=== PATIENT | male | born 1990 | race Caucasian/White ===

== ENCOUNTER 2020-05-12 02:14 | Emergency (ER) | payer BC ==
[2020-05-12 02:22] VITALS: BP 155/62; PULSE 101; RESP 22; TEMP 101.1
[2020-05-12] MEDS ORDERED: ACETAMINOPHEN TAB 500 MG TAB PO STA (02:30)
--- NOTE | 2020-05-12 02:32 | ED ---
URI HPI - General Chief Complaint: Upper Respiratory Infection Stated Complaint: Cough, body aches Time Seen by Provider: 05/12/20 02:23 Source: patient, family Mode of arrival: ambulatory Limitations: no limitations - History of Present Illness Initial Comments: 29-year-old male patient presents to the emergency department today for evaluation of cough, body aches, and chills for the last 3 days. Patient states he is working tonight and his employer sent him home and asked him to come get tested. Patient denies any chest pain or shortness of breath. States he does have some nasal congestion and sore throat. States he has had positive exposure to COVID-19. Denies any other medical problems or taking any medications. Denies taking medication for his symptoms. Patient denies any recent rash, chest pain, abdominal pain, nausea, vomiting, diarrhea, constipation, back pain, numbness, tingling, dizziness, weakness, hematuria, dysuria, urinary urgency, urinary frequency, headache, visual changes, or any other complaints. - Related Data Allergies Allergy/AdvReac Type Severity Reaction Status Date / Time [facility] Allergy Unknown Verified 05/12/20 02:21 Penicillins Allergy Unknown Verified 05/12/20 02:21 Review of Systems ROS Statement: Those systems with pertinent positive or pertinent negative responses have been documented in the HPI. ROS Other: All systems not noted in ROS Statement are negative. Past Medical History Past Medical History: No Reported History History of Any Multi-Drug Resistant Organisms: None Reported Past Surgical History: No Surgical Hx Reported Past Psychological History: No Psychological Hx Reported Smoking Status: Never smoker Past Alcohol Use History: Occasional Past Drug Use History: None Reported General Exam Limitations: no limitations General appearance: alert, in no apparent distress, other (Physical well- developed, well-nourished adult male patient in no acute distress. Vital signs upon presentation are temperature 101.1F, pulse 101, respirations 22, blood pressure 155/62, pulse ox 96% on room air.) Eye exam: Present: normal appearance ENT exam: Present: normal exam, normal oropharynx, mucous membranes moist, TM's normal bilaterally Neck exam: Present: normal inspection. Absent: tenderness, meningismus, lymphadenopathy Respiratory exam: Present: normal lung sounds bilaterally. Absent: respiratory distress, wheezes, rales, rhonchi, stridor Cardiovascular Exam: Present: normal rhythm, tachycardia, normal heart sounds. Absent: systolic murmur, diastolic murmur, rubs, gallop, clicks GI/Abdominal exam: Present: soft, normal bowel sounds. Absent: distended, tenderness, guarding, rebound, rigid Neurological exam: Present: alert, oriented X3, CN II-XII intact Psychiatric exam: Present: normal affect, normal mood Skin exam: Present: warm, dry, intact, normal color. Absent: rash Course Vital Signs 05/12/20 05/12/20 02:18 02:48 Temperature 101.1 F H Pulse Rate 101 H Respiratory 22 22 Rate Blood Pressure 155/62 O2 Sat by Pulse 96 Oximetry Medical Decision Making - Medical Decision Making 29-year-old male patient presents to the emergency department today for fever, cough, body aches. Physical examination did reveal clear equal lung sounds. Temperature is elevated at 101F. Chest x-ray showed possible infiltrate. COVID-19 test was positive. Patient is exhibiting no shortness of breath renal vital signs are satisfactory. To be discharged at this time. He is instructed to follow-up with his primary care physician for recheck in 1-2 days. He is instructed to quarantine until cleared by his physician. Return parameters were discussed in detail. He verbalizes understanding and agrees with this plan. - Lab Data Lab Results 05/12/20 Range/Units 02:44 Coronavirus (PCR) Detected A (Not Detectd) Influenza Type A RNA Not Detected (Not Detectd) Influenza Type B (PCR) Not Detected (Not Detectd) - Radiology Data Radiology results: report reviewed, image reviewed One view x-ray of the chest is obtained. Report was reviewed in its entirety. Impression by Dr. Chanel or shows mild streaky left base opacity which may be due to atelectasis, aspiration, or infection. No consolidations, effusions, or pneumothorax. Disposition Clinical Impression: COVID-19 Disposition: HOME SELF-CARE Condition: Good Instructions (If sedation given, give patient instructions): Viral Syndrome (ED) Additional Instructions: Increase fluids. Take Tylenol Motrin alternating for your fever. Quarantine until cleared by your primary care physician. Follow-up through primary care physician for recheck in 1-2 days. Return to the emergency department immediately for any new, worsening, or concerning symptoms. Especially if you develop shortness of breath. Is patient prescribed a controlled substance at d/c from ED?: No Referrals: None,Stated [Primary Care Provider] - 1-2 days Time of Disposition: 03:02
--- NOTE | 2020-05-12 02:56 | XR ---
EXAM: XR Chest, 1 View CLINICAL HISTORY: ITS.REASON XR Reason: fever/cough/+ exposure to COVID TECHNIQUE: Frontal view of the chest. COMPARISON: none available FINDINGS: Lungs: Mild streaky left base opacity. No consolidation. Pleural space: Unremarkable. No pneumothorax. Heart: Unremarkable. No cardiomegaly. Mediastinum: Unremarkable. Bones/joints: Unremarkable. IMPRESSION: Mild streaky left base opacity which may be due to atelectasis, aspiration, or infection. No consolidations, effusions, or pneumothorax.
[2020-05-12 02:58] LABS: SARS-CoV-2 RNA Rapid Abbott Detected (Not Detectd)
== END 2020-05-12 03:11 | disposition home or self-care (01) ==
LOC: EC 02:14
DX: U07.1 COVID-19 (principal); R00.0 Tachycardia, unspecified; Z88.0 Allergy status to penicillin; Z88.8 Allergy status to other drugs, medicaments and biological substances
CPT/HCPCS: 71045; 87502; 87635; 99283